=== PATIENT | male | born 1995 | race Two or more races ===

== ENCOUNTER 2020-04-09 19:48 | Emergency (ER) | payer OTHER ==
[~2020-04-09] VITALS: Ht 172.7 cm; Wt 77.1 kg
--- NOTE | 2020-04-09 19:55 | NUR ---
ED Nurse Note: pt reports he does not want to be seen anymore, he is "afraid" of COVID and the possibility of getting sick if seen in the ER. pt left without being seen by MD or being triaged. pt ambulatory with steady gait, speaking full sentences, left taking all belongings
[2020-04-09 19:59] VITALS: BP 120/80
== END 2020-04-09 20:10 | disposition left against medical advice (07) ==
LOC: EMR 19:57
DX: R07.9 Chest pain, unspecified (principal); J02.9 Acute pharyngitis, unspecified; Z53.21 Procedure and treatment not carried out due to patient leaving prior to being seen by health care provider